=== PATIENT | female | born 1975 | race Caucasian/White ===

== ENCOUNTER → 2020-03-26 | Outpatient (CLI) | payer OTHER ==
[~2020-03-26] MED LIST: FEOSOL325 MG PO; NORCO 5-325 TA1 EACH PO; VITAMIN D21250 MCG PO
== END ==
LOC: KOH-I 02-25 08:00
DX: R13.10 Dysphagia, unspecified (principal)
CPT/HCPCS: 70490

== ENCOUNTER → 2020-05-28 | Outpatient (CLI) | payer OTHER | LOC: RAD 07:15 | DX: R13.10 Dysphagia, unspecified (principal); K44.9 Diaphragmatic hernia without obstruction or gangrene; K21.9 Gastro-esophageal reflux disease without esophagitis; K22.2 Esophageal obstruction; R93.3 Abnormal findings on diagnostic imaging of other parts of digestive tract | CPT/HCPCS: 74220 ==

== ENCOUNTER → 2020-06-08 | Day surgery (SDC) | payer OTHER | END | disposition home or self-care (01) | LOC: OR 07:01 | PROVIDERS: Surgery | PROC: 0DJ08ZZ Inspection of Upper Intestinal Tract, Via Natural or Artificial Opening Endoscopic (ICD-10-PCS; principal; 2020-06-08 08:45) | DX: K44.9 Diaphragmatic hernia without obstruction or gangrene (principal); K21.9 Gastro-esophageal reflux disease without esophagitis; H91.90 Unspecified hearing loss, unspecified ear; F17.210 Nicotine dependence, cigarettes, uncomplicated; E66.01 Morbid (severe) obesity due to excess calories; Z79.2 Long term (current) use of antibiotics; Z20.822 Contact with and (suspected) exposure to COVID-19 | CPT/HCPCS: 84703; J2704; J7030 ==